=== PATIENT | female | born 1965 | race Caucasian/White ===

== ENCOUNTER 2020-08-08 15:29 | Observation (INO) ==
[2020-08-08] MEDS ORDERED: Aspirin 81 MG TAB.CHEW PO ONE (16:07)
[2020-08-08] MEDS ORDERED: 0.9 % Sodium Chloride 1,000 ML IVC ONE (16:35)
[2020-08-08 16:57] LABS: Basophils # 0.1 K/mcL (0.0-0.2); Basophils % 0.7 %; Eosinophils # 0.2 K/mcL (0.0-0.6); Eosinophils % 2.3 %; Hematocrit 39.4 % (35.3-44.9); Hemoglobin 12.2 g/dL (11.5-15.4); Immature Granulocytes % 0.1 % (0-4); Lymphocytes # 2.8 K/mcL (0.6-4.6); Lymphocytes % 33.6 %; Mean Corpuscular Hemoglobin 26.5 pg (28.0-33.3); Mean Corpuscular Volume 85.7 fL (83.0-100.0); Mean Platelet Volume 9.7 fL (9.4-12.4); Monocytes # 0.6 K/mcL (0.0-1.3); Monocytes % 7.2 %; Neutrophils # 4.7 K/mcL (1.6-8.9); Platelet Count 366 K/mcL (140-400); Red Cell Distribution Width 14.3 % (11.5-14.5); Segmented Neutrophils % 56.1 %; White Blood Count 8.3 K/mcL (4.3-11.1)
[2020-08-08 17:17] LABS: Alanine Aminotransferase 21 Units/L (7-52); Albumin/Globulin Ratio 1.1 (1.1-2.2); Alkaline Phosphatase 115 Units/L (34-104); Aspartate Amino Transferase 16 Units/L (13-39); BUN/Creatinine Ratio 17 (6-26); Bilirubin,Direct 0.1 mg/dL (0.0-0.2); Bilirubin,Indirect 0.2 mg/dL (0.0-1.0); Bilirubin,Total 0.3 mg/dL (0.3-1.0); Blood Urea Nitrogen 15 mg/dL (6-20); Calcium 9.4 mg/dL (8.6-10.3); Carbon Dioxide 30 mEq/L (23-29); Chloride 99 mEq/L (98-107); Globulin 3.6 g/dL (2.4-3.5); Glucose 103 mg/dL (70-105); Lipase 25 Units/L (11-82); Osmolality,Calculated 287 (280-300); Potassium 3.9 mEq/L (3.5-5.1); Sodium 138 mEq/L (136-145); Total Protein 7.6 g/dL (6.4-8.9); Troponin I < 0.03 ng/mL (< 0.04); eGFR For African Americans > 60 (> 60); eGFR For Non-African Americans > 60 (> 60)
[2020-08-08 17:26] LABS: Bilirubin,Urine Negative (Negative); Blood,Urine Negative (Negative); Clarity,Urine Clear (Clear); Color,Urine Colorless (Yellow); Glucose,Urine (UA) Normal (Normal); Ketones,Urine Negative (Negative); Leukocyte Esterase,Urine Negative (Negative); Nitrite,Urine Negative (Negative); Protein,Urine Negative (Neg-Trace); Specific Gravity,Urine 1.012 (1.010-1.025); Urobilinogen,Urine Normal (Normal)
[2020-08-08] MEDS ORDERED: Naloxone 0.4 MG/ML INJ IVP PRN (18:03)
[2020-08-08] MEDS ORDERED: Ondansetron 4 MG/2 ML VIAL IVP PRN (18:03)
[2020-08-08] MEDS ORDERED: *HR* Dextrose 50 % in Water (Vial) 50 ML VIAL IVP PRN (18:06)
[2020-08-08] MEDS ORDERED: Dextrose Gel 15 GM/37.5 ML TUBE PO PRN ×2 (18:06)
[2020-08-08] MEDS ORDERED: D5% in Water 1,000 ML IVC PRN (18:06)
[2020-08-08] MEDS ORDERED: Insulin LISPRO 300 UNITS/3 ML VIAL SUBQ SCH (21:00)
[2020-08-08] MEDS: Gabapentin 300 MG CAPSULE PO SCH (21:01)
[2020-08-08] MEDS: *HR* Ticagrelor 90 MG TABLET PO SCH (21:01)
[2020-08-08] MEDS: *HR* Heparin 5,000 UNIT/ML VIAL SQ SCH (21:02)
[2020-08-08] MEDS: hydroCHLOROthiazide 25 MG TABLET PO SCH (21:05)
[2020-08-09 05:31] LABS: Basophils # 0.1 K/mcL (0.0-0.2); Basophils % 0.6 %; Eosinophils # 0.2 K/mcL (0.0-0.6); Eosinophils % 2.9 %; Immature Granulocytes % 0.4 % (0-4); Lymphocytes # 2.3 K/mcL (0.6-4.6); Lymphocytes % 29.4 %; Mean Corpuscular HGB Conc 30.6 g/dL (31.6-35.5); Mean Corpuscular Hemoglobin 26.3 pg (28.0-33.3); Mean Corpuscular Volume 85.9 fL (83.0-100.0); Mean Platelet Volume 9.9 fL (9.4-12.4); Monocytes # 0.7 K/mcL (0.0-1.3); Monocytes % 9.3 %; Neutrophils # 4.5 K/mcL (1.6-8.9); Platelet Count 353 K/mcL (140-400); Red Blood Count 4.19 M/mcL (3.82-4.97); Red Cell Distribution Width 14.6 % (11.5-14.5); Segmented Neutrophils % 57.4 %; White Blood Count 7.9 K/mcL (4.3-11.1)
[2020-08-09 05:45] LABS: BUN/Creatinine Ratio 18 (6-26); Blood Urea Nitrogen 16 mg/dL (6-20); Carbon Dioxide 29 mEq/L (23-29); Chloride 102 mEq/L (98-107); Chol/HDL Ratio 5.5 (0-4.9); Cholesterol 186 mg/dL (< 200); Glucose 138 mg/dL (70-105); HDL Cholesterol 34 mg/dL (40-59); LDL Cholesterol,Calculated 93 mg/dL (< 100); Magnesium 1.6 mg/dL (1.6-2.6); Osmolality,Calculated 291 (280-300); Potassium 3.8 mEq/L (3.5-5.1); Sodium 139 mEq/L (136-145); Triglycerides 296 mg/dL (< 150); eGFR For African Americans > 60 (> 60); eGFR For Non-African Americans > 60 (> 60)
[2020-08-09] MEDS: *HR* Heparin 5,000 UNIT/ML VIAL SQ SCH ×2 (06:05→15:12)
[2020-08-09] MEDS ORDERED: Levothyroxine 25 MCG TABLET PO SCH (06:30)
[2020-08-09] MEDS ORDERED: Regadenoson 0.4 MG/5 ML SYRINGE IVP ONE (07:35)
[2020-08-09] MEDS: Insulin LISPRO 300 UNITS/3 ML VIAL SUBQ SCH ×2 (08:00→12:03)
[2020-08-09] MEDS ORDERED: Aspirin Enteric Coated 81 MG Tablet PO SCH (09:00)
[2020-08-09] MEDS ORDERED: amLODIPine 5 MG TABLET PO SCH (09:00)
[2020-08-09] MEDS ORDERED: BuPROPion XL (24 HR) 150 MG TABLET PO SCH (09:00)
[2020-08-09] MEDS: Gabapentin 300 MG CAPSULE PO SCH (11:08)
[2020-08-09] MEDS: hydroCHLOROthiazide 25 MG TABLET PO SCH (11:08)
[2020-08-09] MEDS: *HR* Ticagrelor 90 MG TABLET PO SCH (11:08)
[2020-08-09 11:44] VITALS: BP 144/83
[2020-08-09] MEDS ORDERED: Gabapentin 300 MG CAPSULE PO SCH (21:00)
== END 2020-08-09 15:30 | disposition left against medical advice (07) ==
LOC: EMEROOARM 15:29 → 3BNU 15:29
PROVIDERS: ADMIT Family Medicine; ATTEND Family Medicine